=== PATIENT | female | born 1940 | race Caucasian/White ===

== ENCOUNTER → 2018-03-07 | Outpatient (CLI) | payer MEDICARE, BC, OTHER ==
[2018-03-07 10:13] LABS: HEMATOCRIT 41.1 % (36.0-47.0); HEMOGLOBIN 13.6 g/dl (12.0-15.5); MEAN CORPUSCULAR HGB CONC 33.1 g/dl (32.0-36.5); MEAN CORPUSCULAR VOLUME 99.8 fl (80.0-96.0); PLATELET COUNT, AUTOMATED 215 10^3/uL (150-450); RED BLOOD COUNT 4.12 10^6/uL (4.00-5.40); RED CELL DISTRIBUTION WIDTH 11.9 % (11.5-14.5); WHITE BLOOD COUNT 5.4 10^3/uL (4.0-10.0)
[2018-03-07 11:31] LABS: ESTIMATED AVERAGE GLUCOSE 114 MG/DL (60-110); HEMOGLOBIN A1c 5.6 %
[2018-03-07 11:32] LABS: ALKALINE PHOSPHATASE 77 U/L (45-117); ALT/SGPT 28 U/L (12-78); ANION GAP 12 MEQ/L (8-16); AST/SGOT 15 U/L (7-37); BLOOD UREA NITROGEN 10 MG/DL (7-18); CALCIUM LEVEL 9.3 MG/DL (8.8-10.2); CARBON DIOXIDE LEVEL 24 MEQ/L (21-32); CHLORIDE LEVEL 107 MEQ/L (98-107); CREATININE FOR GFR 0.77 MG/DL (0.55-1.30); GLOMERULAR FILTRATION RATE > 60.0 (>39); GLUCOSE, FASTING 118 MG/DL (70-100); POTASSIUM SERUM 4.5 MEQ/L (3.5-5.1); SODIUM LEVEL 143 MEQ/L (136-145)
[2018-03-07 11:33] LABS: ALBUMIN/GLOBULIN RATIO 1.18 (1.00-1.93); BILIRUBIN,TOTAL 0.6 MG/DL (0.2-1.0); CHOLESTEROL LEVEL 210 MG/DL (<200); CHOLESTEROL RISK RATIO 2.625 (<5); FREE T4 0.89 NG/DL (0.76-1.46); HDL CHOLESTEROL 80 MG/DL (>40); LDL CHOLESTEROL 104 MG/DL (<100); NON-HDL-C 130 MG/DL; TOTAL PROTEIN 7.4 GM/DL (6.4-8.2); TRIGLYCERIDES LEVEL 128 MG/DL (<150)
== END ==
LOC: M RAD 08:20
DX: K76.9 Liver disease, unspecified (principal); E78.5 Hyperlipidemia, unspecified; I10 Essential (primary) hypertension; R73.01 Impaired fasting glucose
CPT/HCPCS: 76705

== ENCOUNTER → 2018-11-02 | Outpatient (CLI) | payer MEDICARE, BC, OTHER ==
[2018-11-02 09:09] LABS: ALBUMIN 4.1 GM/DL (3.2-5.2); ALT/SGPT 33 U/L (12-78); BILIRUBIN,TOTAL 0.7 MG/DL (0.2-1.0); BLOOD UREA NITROGEN 14 MG/DL (7-18); CALCIUM LEVEL 9.5 MG/DL (8.8-10.2); CARBON DIOXIDE LEVEL 28 MEQ/L (21-32); CHLORIDE LEVEL 109 MEQ/L (98-107); CHOLESTEROL LEVEL 193 MG/DL (<200); CHOLESTEROL RISK RATIO 2.218 (<5); CREATININE FOR GFR 0.77 MG/DL (0.55-1.30); GLOMERULAR FILTRATION RATE > 60.0 (>39); GLUCOSE, FASTING 112 MG/DL (70-100); HDL CHOLESTEROL 87 MG/DL (>40); LDL CHOLESTEROL 88 MG/DL (<100); NON-HDL-C 106 MG/DL; POTASSIUM SERUM 4.3 MEQ/L (3.5-5.1); SODIUM LEVEL 144 MEQ/L (136-145); TOTAL PROTEIN 6.9 GM/DL (6.4-8.2); TRIGLYCERIDES LEVEL 89 MG/DL (<150)
== END ==
LOC: M LAB 08:08
PROVIDERS: ATTEND Physician Assistant
DX: E78.5 Hyperlipidemia, unspecified (principal)

== ENCOUNTER → 2019-01-03 | Outpatient (CLI) | payer MEDICARE, BC ==
--- NOTE | 2019-01-10 16:12 | REPMRS ---
Patient History The patient states she has not had a clinical breast exam in over a year. Patient is postmenopausal and has history of basal cell skin cancer starting at age 77. Family history of colorectal cancer at age 46 in mother, breast cancer at age 50 or over in paternal aunt. No Hormone Replacement Therapy 3D TOMOSYNTHESIS WAS PERFORMED. The [facility] lifetime risk for breast cancer is 4.5%. Digital Woman Screen Mammo: January 03, 2019 - Exam #: [id number] Bilateral CC and MLO view(s) were taken. Technologist: Hilda Robison, Technologist Prior study comparison: 2017, bilateral digital mammo screening bilat, performed at [facility]. FINDINGS: The breast tissue is heterogeneously dense. This may lower the sensitivity of mammography. There has been no change in the appearance of the mammogram from the prior studies. There is a moderate amount of residual fibroglandular tissue which is fairly symmetric. There is no interval development of dominant mass, areas of architectural distortion, or clustered microcalcification typical of malignancy. Assessment: BI-RADS/ACR category 1 mammogram. Negative Mammogram. Recommendation Routine screening mammogram in 1 year (for women over age 40). This mammogram was interpreted with the aid of an FDA-approved computer-aided dectection system. Electronically Signed By: Sylvester Duarte MD 01/10/19 [id number]
--- NOTE | 2019-01-17 15:43 | DEXA ---
AP SPINE L1 - L4 1.245 0.4 2.2 LT FEMUR TOTAL 0.795 -1.7 0.2 LT NECK 0.819 -1.6 0.5 RT FEMUR TOTAL 0.850 -1.3 0.7 RT NECK 0.805 -1.7 0.4 TOTAL BODY TOTAL OTHER COMMENTS: Normal bone densitometry of the spine. There is low bone density of the hips. The increased density of the spine does represent a significant change. The decreased density of the left hip does represent a significant change. The decreased density of the right hip does represent a significant change. The density of the spine has increased 15.2% since the initial exam on 12/22/2000. The spine density has increased 6.9% since the most recent exam on 11/07/2012. The density of the left hip has decreased 5.8% since the initial exam on 12/22/2000. The density of the left hip has decreased 6.1% since the most recent exam on 11/07/2012. The density of the right hip has increased 0.4% since the initial exam on 12/22/2000. The density of the right hip has decreased or 0.2% since the most recent exam on 11/07/2012. FOLLOW-UP: Recommendation for the next bone density exam: 2 years. JOSE ALFREDO
== END ==
LOC: M WHC 10:46
PROVIDERS: ATTEND Nurse Practitioner Family
DX: Z12.31 Encounter for screening mammogram for malignant neoplasm of breast (principal); Z78.0 Asymptomatic menopausal state; Z13.820 Encounter for screening for osteoporosis; Z85.828 Personal history of other malignant neoplasm of skin; Z80.0 Family history of malignant neoplasm of digestive organs
CPT/HCPCS: 77063; 77067; 77080; G0463

== ENCOUNTER → 2019-03-16 | Outpatient (CLI) | payer MEDICARE, BC, OTHER ==
[2019-03-16 11:17] LABS: ALBUMIN 4.1 GM/DL (3.2-5.2); ALT/SGPT 37 U/L (12-78); BILIRUBIN,TOTAL 1.1 MG/DL (0.2-1.0); BLOOD UREA NITROGEN 12 MG/DL (7-18); CALCIUM LEVEL 9.4 MG/DL (8.8-10.2); CARBON DIOXIDE LEVEL 27 MEQ/L (21-32); CHLORIDE LEVEL 105 MEQ/L (98-107); CHOLESTEROL LEVEL 187 MG/DL (<200); CREATININE FOR GFR 0.81 MG/DL (0.55-1.30); GLOMERULAR FILTRATION RATE > 60.0 (>39); GLUCOSE, FASTING 113 MG/DL (70-100); HDL CHOLESTEROL 85 MG/DL (>40); LDL CHOLESTEROL 81 MG/DL (<100); NON-HDL-C 102 MG/DL; POTASSIUM SERUM 4.4 MEQ/L (3.5-5.1); SODIUM LEVEL 141 MEQ/L (136-145); TOTAL PROTEIN 7.3 GM/DL (6.4-8.2); TRIGLYCERIDES LEVEL 107 MG/DL (<150)
[2019-03-16 11:21] LABS: HEMOGLOBIN A1c 5.7 %
[2019-03-16 11:27] LABS: MALB URINE SIEMENS 15.4 MG/L
== END ==
LOC: M LAB 10:05
PROVIDERS: ATTEND Nurse Practitioner Family
DX: E78.5 Hyperlipidemia, unspecified (principal)

== ENCOUNTER → 2019-10-31 | Outpatient (CLI) | payer MEDICARE, BC, OTHER ==
[2019-10-31 09:00] LABS: ALBUMIN 4.3 GM/DL (3.2-5.2); ALT/SGPT 35 U/L (12-78); BILIRUBIN,TOTAL 0.6 MG/DL (0.2-1.0); BLOOD UREA NITROGEN 14 MG/DL (7-18); CALCIUM LEVEL 9.2 MG/DL (8.8-10.2); CARBON DIOXIDE LEVEL 28 MEQ/L (21-32); CHLORIDE LEVEL 108 MEQ/L (98-107); CHOLESTEROL LEVEL 280 MG/DL (<200); CHOLESTEROL RISK RATIO 3.684 (<5); CREATININE FOR GFR 0.87 MG/DL (0.55-1.30); GLOMERULAR FILTRATION RATE > 60.0 (>39); GLUCOSE, FASTING 105 MG/DL (70-100); HDL CHOLESTEROL 76 MG/DL (>40); LDL CHOLESTEROL 164 MG/DL (<100); NON-HDL-C 204 MG/DL; POTASSIUM SERUM 4.5 MEQ/L (3.5-5.1); SODIUM LEVEL 142 MEQ/L (136-145); TOTAL PROTEIN 7.6 GM/DL (6.4-8.2); TRIGLYCERIDES LEVEL 202 MG/DL (<150)
== END ==
LOC: M LAB 07:36
PROVIDERS: ATTEND Family Medicine
DX: I10 Essential (primary) hypertension (principal)

== ENCOUNTER → 2019-12-14 | Outpatient (CLI) | payer MEDICARE, BC, OTHER ==
[2019-12-14 11:07] LABS: CHOLESTEROL RISK RATIO 3.423 (<5)
== END ==
LOC: M LAB 09:03
PROVIDERS: ATTEND Family Medicine
DX: E78.2 Mixed hyperlipidemia (principal)

== ENCOUNTER → 2020-03-07 | Outpatient (CLI) | payer MEDICARE, BC, OTHER ==
[2020-03-07 08:43] LABS: CHOLESTEROL RISK RATIO 2.321 (<5)
== END ==
LOC: M LAB 07:42
PROVIDERS: ATTEND Family Medicine
DX: E78.2 Mixed hyperlipidemia (principal)

== ENCOUNTER → 2020-11-13 | Outpatient (CLI) | payer MEDICARE, BC, OTHER ==
--- NOTE | 2020-11-13 12:45 | REPVR ---
PROCEDURE INFORMATION: Exam: MR Lumbar Spine Without Contrast Exam date and time: 11/13/2020 11:47 AM Age: 80 years old Clinical indication: Condition or disease; Stenosis, spinal; Lumbar sacral region; Additional info: Spinal stenosis TECHNIQUE: Imaging protocol: Multiplanar magnetic resonance images of the lumbar spine without intravenous contrast. COMPARISON: No relevant prior studies available. FINDINGS: Vertebrae: Mild dextroscoliosis is seen on the localizing view. There is grade 1 retrolisthesis of L1 on L2. Vertebral body heights normal. There is disc desiccation diffusely and multilevel disc height loss from L1-L2 through L4-L5. Vertebral body marrow signal is patchy with multifocal areas of fatty marrow which may relate to osteoporosis and correlate with DEXA. There are endplate degenerative marrow changes at L2-L3. Spinal cord: Conus terminates at L1-L2 and appears normal in signal intensity without intrinsic or extrinsic lesion. L1-L2: There is generalized disc bulge. There is thickening of ligamentum flavum and facet degeneration. There is no significant spinal stenosis. There is moderate bilateral neural foraminal narrowing. L2-L3: There is generalized disc bulge. There is approximately 5 mm left subarticular recess protrusion causing severe narrowing of the superior aspect of the subarticular recess. There is thickening of ligamentum flavum and facet degeneration. There is moderate narrowing of right subarticular recess and spinal stenosis. There is moderate bilateral neural foraminal narrowing. L3-L4: There is generalized disc bulge. There is thickening of ligamentum flavum and facet degeneration. There is moderate to severe spinal stenosis and left greater than right subarticular recesses narrowing. There is mild to moderate right and severe left neural foraminal narrowing. L4-L5: There is generalized disc bulge. There is thickening of ligamentum flavum and facet degeneration. There is mild spinal stenosis and moderate bilateral subarticular recess narrowing. There is mild right and severe left neural foraminal narrowing. L5-S1: There is generalized disc bulge and shallow left central protrusion. There is thickening of ligamentum flavum and facet degeneration. There is no significant spinal stenosis. There is mild right and [id number] left neural foraminal narrowing. Soft tissues: Unremarkable. IMPRESSION: Degenerative changes greatest at L3-L4 with moderate severe spinal stenosis. Multilevel various degrees of neural foraminal narrowing greatest left L3-L4 and L4-L5. Electronically signed by: Jacqueline Vargas On 11/13/2020 12:45:10 PM
== END ==
LOC: M RAD 09:59
PROVIDERS: ATTEND Physician Assistant
DX: M48.061 Spinal stenosis, lumbar region without neurogenic claudication (principal)

== ENCOUNTER → 2020-11-24 | Outpatient (CLI) | payer MEDICARE, BC, OTHER ==
[2020-11-24 09:22] LABS: ALT/SGPT 40 U/L (12-78); BILIRUBIN,TOTAL 0.8 MG/DL (0.2-1.0); BLOOD UREA NITROGEN 11 MG/DL (7-18); CALCIUM LEVEL 9.3 MG/DL (8.8-10.2); CARBON DIOXIDE LEVEL 27 MEQ/L (21-32); CHLORIDE LEVEL 111 MEQ/L (98-107); CHOLESTEROL LEVEL 168 MG/DL (<200); CHOLESTEROL RISK RATIO 2.181 (<5); CREATININE FOR GFR 0.72 MG/DL (0.55-1.30); GLOMERULAR FILTRATION RATE > 60.0 (>32); GLUCOSE, FASTING 102 MG/DL (70-100); HDL CHOLESTEROL 77 MG/DL (>40); LDL CHOLESTEROL 72 MG/DL (<100); NON-HDL-C 91 MG/DL; POTASSIUM SERUM 4.5 MEQ/L (3.5-5.1); SODIUM LEVEL 143 MEQ/L (136-145); TRIGLYCERIDES LEVEL 95 MG/DL (<150)
[2020-11-24 10:02] LABS: HEMOGLOBIN A1c 5.4 %
== END ==
LOC: M LAB 07:47
PROVIDERS: ATTEND Family Medicine
DX: I10 Essential (primary) hypertension (principal)

== ENCOUNTER → 2021-01-21 | Outpatient (CLI) | payer MEDICARE, BC ==
--- NOTE | 2021-01-21 12:25 | DEXAMM ---
INDICATION: M85.80 DECREASE BONE DENSITY. COMPARISON: 01/03/2019 as well as other prior exams. TECHNIQUE: Bone density was measured using dual-energy x-ray absorptiometry (DEXA). FINDINGS: AP SPINE L1-L4 BMD 1.260 g/cm2 Young Adult T-Score 0.5 Age Matched Z-Score 2.4. LT FEMUR, TOTAL BMD 0.805 g/cm2 Young Adult T-Score -1.6 Age Matched Z-Score 0.4. LT NECK BMD 0.854 g/cm2 Young Adult T-Score -1.3 Age Matched Z-Score 0.9. RT FEMUR, TOTAL BMD 0.819 g/cm2 Young Adult T-Score -1.5 Age Matched Z-Score 0.5. RT NECK BMD 0.790 g/cm2 Young Adult T-Score -1.8 Age Matched Z-Score 0.4. IMPRESSION: There is normal bone density of the spine. There is low bone density of the left hip. There is low bone density of the right hip. The density of the spine has increased 16.6% since the initial exam on 12/22/2000. The density of the spine increased 1.2% since most recent exam on 01/03/2019. The density of the left hip has decreased 4.6% since initial exam on 12/22/2000. The density of the left hip has increased 1.3% since most recent exam on 01/03/2019. The density of the right hip has decreased 3.3% since the initial exam on 12/22/2000. The density of the right hip has decreased 3.6% since the most recent exam on 12/24/2018. FOLLOW-UP: Recommendation for the next bone density exam: 2 years. <Electronically signed by Sylvester Duarte > 01/21/21 [id number]
== END ==
LOC: M WHC 11:03
PROVIDERS: ATTEND Family Medicine
DX: M85.80 Other specified disorders of bone density and structure, unspecified site (principal); M81.0 Age-related osteoporosis without current pathological fracture

== ENCOUNTER → 2021-03-12 | Outpatient (CLI) | payer MEDICARE, BC, OTHER ==
[2021-03-12 14:17] LABS: BLOOD UREA NITROGEN 16 MG/DL (7-18); CALCIUM LEVEL 9.4 MG/DL (8.8-10.2); CARBON DIOXIDE LEVEL 26 MEQ/L (21-32); CHLORIDE LEVEL 109 MEQ/L (98-107); CREATININE FOR GFR 0.72 MG/DL (0.55-1.30); GLOMERULAR FILTRATION RATE > 60.0 (>32); GLUCOSE, FASTING 108 MG/DL (70-100); POTASSIUM SERUM 4.6 MEQ/L (3.5-5.1); SODIUM LEVEL 143 MEQ/L (136-145)
[2021-03-12 14:29] LABS: TOTAL 25(OH) VITAMIN D 40.7 NG/ML (30.0-100.0)
== END ==
LOC: M PLALAB 10:00
PROVIDERS: ATTEND Family Medicine
DX: E55.9 Vitamin D deficiency, unspecified (principal); I10 Essential (primary) hypertension

== ENCOUNTER → 2021-11-12 | Outpatient (CLI) | payer MEDICARE, BC, OTHER ==
[2021-11-12 09:19] LABS: ALBUMIN 3.8 GM/DL (3.2-5.2); ALT/SGPT 34 U/L (12-78); BILIRUBIN,TOTAL 0.7 MG/DL (0.2-1.0); BLOOD UREA NITROGEN 12 MG/DL (7-18); CALCIUM LEVEL 9.5 MG/DL (8.8-10.2); CARBON DIOXIDE LEVEL 26 MEQ/L (21-32); CHLORIDE LEVEL 109 MEQ/L (98-107); CHOLESTEROL LEVEL 182 MG/DL (<200); GLOMERULAR FILTRATION RATE > 60.0 (>32); GLUCOSE, FASTING 117 MG/DL (70-100); HDL CHOLESTEROL 70 MG/DL (>40); LDL CHOLESTEROL 87 MG/DL (<100); NON-HDL-C 112 MG/DL; SODIUM LEVEL 143 MEQ/L (136-145); TOTAL PROTEIN 6.8 GM/DL (6.4-8.2); TRIGLYCERIDES LEVEL 125 MG/DL (<150)
== END ==
LOC: M LAB 08:01
PROVIDERS: ATTEND Family Medicine
DX: I10 Essential (primary) hypertension (principal)

== ENCOUNTER → 2021-12-28 | Outpatient (CLI) | payer MEDICARE, BC, OTHER | LOC: M RAD 11:07 | DX: M54.59 Other low back pain (principal) ==

== ENCOUNTER → 2022-02-03 | Outpatient (CLI) | payer MEDICARE, BC, OTHER ==
[2022-02-03 10:57] LABS: BLOOD UREA NITROGEN 15 MG/DL (7-18); CREATININE FOR GFR 0.74 MG/DL (0.55-1.30); GLOMERULAR FILTRATION RATE > 60.0 (>32)
== END ==
LOC: M LAB 09:37
PROVIDERS: ATTEND Physical Medicine & Rehabilitation
DX: M51.36 Other intervertebral disc degeneration, lumbar region (principal)

== ENCOUNTER → 2022-02-04 | Outpatient (CLI) | payer MEDICARE, BC, OTHER ==
[~2022-02-04] MED LIST: PROHANCE 279.3MG/ML 15ML VIAL ONE; diphenhydrAMINE 25MG CAP ONE
== END ==
LOC: M PLAIMG 10:11
PROVIDERS: ATTEND Physical Medicine & Rehabilitation
DX: M51.36 Other intervertebral disc degeneration, lumbar region (principal); M51.26 Other intervertebral disc displacement, lumbar region
CPT/HCPCS: 72158; A9576

== ENCOUNTER → 2022-02-23 | Outpatient (CLI) | payer MEDICARE, BC, OTHER ==
[2022-02-23 10:30] LABS: PLATELET COUNT, AUTOMATED 236 10^3/uL (150-450)
[2022-02-23 10:53] LABS: INR 0.9; PARTIAL THROMBOPLASTIN TIME 28.8 SECONDS (25.9-37.0); PROTHROMBIN TIME 12.5 SECONDS (12.7-14.5)
== END ==
LOC: M LAB 09:27
PROVIDERS: ATTEND Physical Medicine & Rehabilitation
DX: M48.062 Spinal stenosis, lumbar region with neurogenic claudication (principal); Z79.899 Other long term (current) drug therapy